=== PATIENT | male | born 1970 | race Caucasian/White ===

== ENCOUNTER 2017-08-17 10:48 | Emergency (ER) | payer OTHER ==
--- NOTE | 2017-08-17 13:15 | EDPHY ---
H & P Stated Complaint: L sided numbness 2/2 back injury, anxiety Time Seen by Provider: 08/17/17 12:51 HPI/ROS: CHIEF COMPLAINT: Anxiety, left-sided numbness HISTORY OF PRESENT ILLNESS: 47-year-old male with anxiety presents with left- sided numbness. This morning, he began feeling very stressed and then had a panic attack. Associated with left-sided numbness from his scalp to his toes. Associated with hyperventilation and rapid heart rate. Now feels better. He continues to have slight tingling of his hand and his foot. He is under a lot of stress recently because of a divorce and he is moving to a new home. He tweaked his low back few days ago while moving boxes, but has no back pain. No neck pain. REVIEW OF SYSTEMS: complete 10 point ROS negative except at noted in the HPI - Personal History Current Tetanus/Diphtheria Vaccine: Unsure Current Tetanus Diphtheria and Acellular Pertussis (TDAP): Unsure - Medical/Surgical History Hx Asthma: No Hx Chronic Respiratory Disease: No Hx Diabetes: No Hx Cardiac Disease: No Hx Renal Disease: No Hx Cirrhosis: No Hx Alcoholism: No Hx HIV/AIDS: No Hx Splenectomy or Spleen Trauma: No Other PMH: anxiety, - Social History Smoking Status: Never smoked - Physical Exam Exam: General Appearance: Alert, pleasant Eyes: Pupils equal and round, no conjunctival pallor ENT, Mouth: Mucous membranes moist Neck: Normal inspection Respiratory: Lungs are clear to auscultation Cardiovascular: Regular rate and rhythm Gastrointestinal: Abdomen is soft and nontender Neurological: Alert, oriented x3, cranial nerves II through XII intact, motor 5 /5, sensory intact to light touch, normal gait Skin: Warm and dry Extremities: Nontender, no pedal edema Psychiatric: Mood and affect normal Constitutional: Initial Vital Signs Temperature (C) 36.3 C 08/17/17 10:53 Heart Rate 88 08/17/17 10:53 Respiratory Rate 16 08/17/17 10:53 Blood Pressure 159/102 H 08/17/17 10:53 O2 Sat (%) 96 08/17/17 10:53 O2 Delivery Mode Room Air Allergies/Adverse Reactions: No Known Allergies Allergy (Verified 08/17/17 11:21) Home Medications: Medication Instructions Recorded ALPRAZolam [Xanax 0.5 MG (*)] 0.5 mg PO TID PRN #10 tab 08/17/17 Medical Decision Making ED Course/Re-evaluation: This patient presents after a panic attack, now feeling better. He continues to have slight tingling in his hand in this foot. I do not think that this represents a stroke or other serious etiology. He requests a prescription for Xanax in case the symptoms recur. He will follow up with his therapist. Differential Diagnosis: Altered mental status including but not limited to hypoglycemia, infectious process, electrolyte abnormality, head injury, CVA, and intoxicants. Departure - Departure Disposition: Home, Routine, Self-Care Clinical Impression: Anxiety, Paresthesia Condition: Good Instructions: Paresthesia (ED), Anxiety (ED) Referrals: NONE *PRIMARY CARE P,. [Primary Care Provider] - As per Instructions Prescriptions: ALPRAZolam [Xanax 0.5 MG (*)] 0.5 mg PO TID PRN #10 tab PRN Reason: Anxiety
[2017-08-17 13:20] VITALS: BP 166/97
== END 2017-08-17 13:22 | disposition home or self-care (01) ==
DX: F41.9 Anxiety disorder, unspecified (principal); R20.0 Anesthesia of skin